=== PATIENT | female | born 1940 | race Caucasian/White ===

== ENCOUNTER 2017-01-31 10:14 | Emergency (ER) | payer MEDICARE ==
[2017-01-31 11:08] VITALS: RESP 16
[2017-01-31] MEDS ORDERED: SODIUM CHLORIDE 0.9% 1,000 ML IV STA (11:43)
[2017-01-31] MEDS ORDERED: KETOROLAC 30 MG/ML 1 ML VIAL IVP STA (11:46)
--- NOTE | 2017-01-31 11:49 | ED ---
Abdominal Pain HPI - General Chief Complaint: Abdominal Pain Stated Complaint: back pain, Kidney pain Time Seen by Provider: 01/31/17 11:20 Source: patient, RN notes reviewed Mode of arrival: ambulatory Limitations: no limitations - History of Present Illness Initial Comments: This is a 76-year-old female history of kidney stones many years ago around 1979 who states she had the onset at 9 AM this morning of right CVA pain was almost 10/10 in severity. She states is 5/10 now she cannot describe the pain specifically but initially states was very severe she's had some hot and cold flashes some nausea with it. She does state it feels very similar to her kidney stone that she recalls from any years ago. She denies any cough or phlegm production any constipation diarrhea or dysuria. She denies any hematuria at this time. She currently is not nauseated. She has a history of a cholecystectomy hysterectomy and shoulder surgeries. No known heart disease. No known lung disease MD Complaint: flank pain - Related Data Home Medications Medication Instructions Recorded Confirmed Bimatoprost [Lumigan .01% Ophth 1 drop LEFT EYE HS 01/31/17 01/31/17 Soln] Brimonidine Tartrate/Timolol 1 drop LEFT EYE BID 01/31/17 01/31/17 [Combigan 0.2%-0.5% Eye Drops] Cholecalciferol [Vitamin D3] 5,000 unit PO DAILY 01/31/17 01/31/17 Folic Acid 0.8 mg PO DAILY 01/31/17 01/31/17 Levothyroxine Sodium [Synthroid] 100 mcg PO DAILY 01/31/17 01/31/17 Lisinopril [Zestril] 20 mg PO DAILY 01/31/17 01/31/17 Multivitamins, Thera [Multivitamin 1 tab PO DAILY 01/31/17 01/31/17 (formulary)] [place]-3/Dha/Epa/Fish Oil [Fish Oil 1 cap PO DAILY 01/31/17 01/31/17 500 mg Softgel] Ubidecarenone [Co Q-10] 30 mg PO DAILY 01/31/17 01/31/17 Previous Rx's Medication Instructions Recorded Ketorolac [Toradol] 10 mg PO Q6HR #20 tab 01/31/17 Tamsulosin HCl [Flomax] 0.4 mg PO DAILY #7 cap.er.24h 01/31/17 Allergies Allergy/AdvReac Type Severity Reaction Status Date / Time acetaminophen Allergy "SHAKING" Verified 01/31/17 12:20 [From Excedrin Back and Body] adhesive tape Allergy Rash/Hives Verified 01/31/17 12:20 aspirin Allergy "SHAKING" Verified 01/31/17 12:20 [From Excedrin Back and Body] calcium carbonate Allergy "SHAKING" Verified 01/31/17 12:20 [From Excedrin Back and Body] Sulfa (Sulfonamide Allergy Unknown Verified 01/31/17 12:20 Antibiotics) Review of Systems ROS Statement: Those systems with pertinent positive or pertinent negative responses have been documented in the HPI. ROS Other: All systems not noted in ROS Statement are negative. Past Medical History Past Medical History: Hypertension, Thyroid Disorder Additional Past Medical History / Comment(s): KIDNEY STONE History of Any Multi-Drug Resistant Organisms: None Reported Past Surgical History: Cholecystectomy, Hysterectomy, Tonsillectomy Additional Past Surgical History / Comment(s): PLASTIC SURGERY SHOULDER, TUMORS IN FEET, BARTHILON CYST Past Psychological History: No Psychological Hx Reported Smoking Status: Never smoker Past Alcohol Use History: Occasional Past Drug Use History: None Reported General Exam - General Exam Comments Initial Comments: This is a well-developed well-nourished awake alert oriented 3 female Limitations: no limitations General appearance: alert, in no apparent distress Head exam: Present: atraumatic, normocephalic, normal inspection Eye exam: Present: normal appearance, PERRL, EOMI. Absent: scleral icterus, conjunctival injection, periorbital swelling ENT exam: Present: normal exam, mucous membranes moist Neck exam: Present: normal inspection. Absent: tenderness, meningismus, lymphadenopathy Respiratory exam: Present: normal lung sounds bilaterally. Absent: respiratory distress, wheezes, rales, rhonchi, stridor Cardiovascular Exam: Present: normal rhythm, bradycardia, normal heart sounds. Absent: systolic murmur, diastolic murmur, rubs, gallop, clicks GI/Abdominal exam: Present: soft, tenderness, normal bowel sounds. Absent: distended, guarding, rebound, rigid Rectal exam: Present: deferred (Mild right flank tenderness palpation no guarding or rebound masses or bruits) Extremities exam: Present: normal inspection, full ROM, normal capillary refill. Absent: tenderness, pedal edema, joint swelling, calf tenderness Back exam: Present: normal inspection. Absent: CVA tenderness (R), CVA tenderness (L), paraspinal tenderness, vertebral tenderness Neurological exam: Present: alert, oriented X3, CN II-XII intact Psychiatric exam: Present: normal affect, normal mood Skin exam: Present: warm, dry, intact, normal color. Absent: rash Course Vital Signs 01/31/17 01/31/17 11:04 15:17 Temperature 97.6 F 98.2 F Pulse Rate 55 L 82 Respiratory 16 16 Rate Blood Pressure 127/60 146/68 O2 Sat by Pulse 97 96 Oximetry Medical Decision Making - Medical Decision Making Patient continues to be pain-free I did discuss the findings with her. Reexamination reveals no tenderness or pain I did evaluate patient's lower extremities again no evidence of any calf pain or swelling. Patient will be discharged on appropriate medication - Lab Data Result diagrams: 01/31/17 12:10 01/31/17 12:10 Lab Results 01/31/17 01/31/17 01/31/17 Range/Units 12:10 12:10 12:10 WBC (3.8-10.6) k/uL RBC (3.80-5.40) m/uL Hgb (11.4-16.0) gm/dL Hct (34.0-46.0) % MCV (80.0-100.0) fL MCH (25.0-35.0) pg MCHC (31.0-37.0) g/dL RDW (11.5-15.5) % Plt Count (150-450) k/uL Neutrophils % % Lymphocytes % % Monocytes % % Eosinophils % % Basophils % % Neutrophils # (1.3-7.7) k/uL Lymphocytes # (1.0-4.8) k/uL Monocytes # (0-1.0) k/uL Eosinophils # (0-0.7) k/uL Basophils # (0-0.2) k/uL D-Dimer 2.04 H (<0.60) mg/L FEU Sodium 142 (137-145) mmol/L Potassium 4.4 (3.5-5.1) mmol/L Chloride 106 (98-107) mmol/L Carbon Dioxide 26 (22-30) mmol/L Anion Gap 10 mmol/L BUN 19 H (7-17) mg/dL Creatinine 0.75 (0.52-1.04) mg/dL Est GFR (MDRD) Af Amer >60 (>60 ml/min/1.73 sqM) Est GFR (MDRD) Non-Af >60 (>60 ml/min/1.73 sqM) Glucose 114 H (74-99) mg/dL Calcium 10.0 (8.4-10.2) mg/dL Magnesium 2.1 (1.6-2.3) mg/dL Total Bilirubin 0.7 (0.2-1.3) mg/dL AST 25 (14-36) U/L ALT 32 (9-52) U/L Alkaline Phosphatase 91 (38-126) U/L Total Creatine Kinase 68 (30-135) U/L CK-MB (CK-2) 1.0 (0.0-2.4) ng/mL CK-MB (CK-2) Rel Index 1.5 Troponin I <0.012 (0.000-0.034) ng/mL Total Protein 7.8 (6.3-8.2) g/dL Albumin 4.4 (3.5-5.0) g/dL Amylase 53 (30-110) U/L Lipase 183 (23-300) U/L Urine Color Urine Appearance (Clear) Urine pH (5.0-8.0) Ur Specific [place] (1.001-1.035) Urine Protein (Negative) Urine Glucose (UA) (Negative) Urine Ketones (Negative) Urine Blood (Negative) Urine Nitrite (Negative) Urine Bilirubin (Negative) Urine Urobilinogen (<2.0) mg/dL Ur Leukocyte Esterase (Negative) Urine RBC (0-5) /hpf Urine WBC (0-5) /hpf Ur Squamous Epith Cells (0-4) /hpf Urine Bacteria (None) /hpf Urine Mucus (None) /hpf 01/31/17 01/31/17 Range/Units 12:10 12:10 WBC 9.9 (3.8-10.6) k/uL RBC 4.72 (3.80-5.40) m/uL Hgb 14.4 (11.4-16.0) gm/dL Hct 43.0 (34.0-46.0) % MCV 91.2 (80.0-100.0) fL MCH 30.4 (25.0-35.0) pg MCHC 33.4 (31.0-37.0) g/dL RDW 12.7 (11.5-15.5) % Plt Count 243 (150-450) k/uL Neutrophils % 81 % Lymphocytes % 11 % Monocytes % 5 % Eosinophils % 1 % Basophils % 0 % Neutrophils # 8.0 H (1.3-7.7) k/uL Lymphocytes # 1.1 (1.0-4.8) k/uL Monocytes # 0.5 (0-1.0) k/uL Eosinophils # 0.1 (0-0.7) k/uL Basophils # 0.0 (0-0.2) k/uL D-Dimer (<0.60) mg/L FEU Sodium (137-145) mmol/L Potassium (3.5-5.1) mmol/L Chloride (98-107) mmol/L Carbon Dioxide (22-30) mmol/L Anion Gap mmol/L BUN (7-17) mg/dL Creatinine (0.52-1.04) mg/dL Est GFR (MDRD) Af Amer (>60 ml/min/1.73 sqM) Est GFR (MDRD) Non-Af (>60 ml/min/1.73 sqM) Glucose (74-99) mg/dL Calcium (8.4-10.2) mg/dL Magnesium (1.6-2.3) mg/dL Total Bilirubin (0.2-1.3) mg/dL AST (14-36) U/L ALT (9-52) U/L Alkaline Phosphatase (38-126) U/L Total Creatine Kinase (30-135) U/L CK-MB (CK-2) (0.0-2.4) ng/mL CK-MB (CK-2) Rel Index Troponin I (0.000-0.034) ng/mL Total Protein (6.3-8.2) g/dL Albumin (3.5-5.0) g/dL Amylase (30-110) U/L Lipase (23-300) U/L Urine Color Yellow Urine Appearance Cloudy H (Clear) Urine pH 5.5 (5.0-8.0) Ur Specific [place] 1.013 (1.001-1.035) Urine Protein Trace H (Negative) Urine Glucose (UA) Negative (Negative) Urine Ketones Trace H (Negative) Urine Blood Large H (Negative) Urine Nitrite Negative (Negative) Urine Bilirubin Negative (Negative) Urine Urobilinogen <2.0 (<2.0) mg/dL Ur Leukocyte Esterase Negative (Negative) Urine RBC >182 H (0-5) /hpf Urine WBC 8 H (0-5) /hpf Ur Squamous Epith Cells <1 (0-4) /hpf Urine Bacteria Rare H (None) /hpf Urine Mucus Rare H (None) /hpf - EKG Data -: EKG Interpreted by Me EKG shows normal: sinus rhythm (Normal sinus rhythm rate 65. Interval 178 QRS duration 80 daily since QTC of 432/449 st-t wave changes.) - Radiology Data Radiology results: report reviewed (I did review the imaging and reports no evidence of acute findings other than there is a 0.2 cm mid to distal ureteral stone on the right. There is moderate hydronephrosis and hydroureter. There is evidence of diverticulosis no evidence of any suspicious aneurysm or dissection.), image reviewed Disposition Clinical Impression: Kidney stone on right side, Renal colic on right side, Diverticulosis Disposition: HOME SELF-CARE Condition: Good Instructions: Kidney Stones (ED), Renal Colic (ED), Flank Pain (ED), Diverticulosis (ED) Prescriptions: Ketorolac [Toradol] 10 mg PO Q6HR #20 tab Tamsulosin HCl [Flomax] 0.4 mg PO DAILY #7 cap.er.24h
[2017-01-31 12:27] LABS: Basophils % (A) 0 %; CHCM 34.1; Eosinophils # (A) 0.1 k/uL (0-0.7); Eosinophils % (A) 1 %; HDW 2.38; HGB 14.4 gm/dL (11.4-16.0); Luc # (Auto) 0.14; Luc % (Auto) 2; Lymphocytes # (A) 1.1 k/uL (1.0-4.8); Lymphocytes % (A) 11 %; MCH 30.4 pg (25.0-35.0); MCHC 33.4 g/dL (31.0-37.0); MCV 91.2 fL (80.0-100.0); Mean Platelet Volume 6.7; Monocytes # (A) 0.5 k/uL (0-1.0); Monocytes % (A) 5 %; Neutrophils % (A) 81 %; RBC 4.72 m/uL (3.80-5.40); RDW 12.7 % (11.5-15.5); WBC 9.9 k/uL (3.8-10.6); WBC (Perox) 9.57
[2017-01-31 12:37] LABS: Appearance,Urine Cloudy (Clear); Bacteria,Urine Rare /hpf; Bilirubin,Urine Negative (Negative); Glucose,Urine (UA) Negative (Negative); Ketones,Urine Trace (Negative); Leukocyte Esterase,Urine Negative (Negative); Mucus,Urine Rare /hpf; Nitrite,Urine Negative (Negative); PH, Urine 5.5 (5.0-8.0); Particle Count 2539; Protein,Urine Trace (Negative); RBC,Urine >182 /hpf (0-5); Specific Gravity,Urine 1.013 (1.001-1.035); Squamous Epithelial Cell,Urine <1 /hpf (0-4); UA Billing (MACRO vs. MICRO) MICRO; Urobilinogen,Urine <2.0 mg/dL (<2.0); WBC,Urine 8 /hpf (0-5)
[2017-01-31 12:40] LABS: ALT 32 U/L (9-52); AST 25 U/L (14-36); Alkaline Phosphatase 91 U/L (38-126); Amylase 53 U/L (30-110); Anion Gap 10 mmol/L; Blood Urea Nitrogen 19 mg/dL (7-17); Carbon Dioxide 26 mmol/L (22-30); Chloride 106 mmol/L (98-107); Glucose 114 mg/dL (74-99); Non-African American GFR(MDRD) >60 (>60 ml/min/1.73 sqM); Potassium 4.4 mmol/L (3.5-5.1); Sodium 142 mmol/L (137-145); Total Bilirubin 0.7 mg/dL (0.2-1.3); Total Protein 7.8 g/dL (6.3-8.2)
--- NOTE | 2017-01-31 12:42 | XR ---
EXAMINATION TYPE: XR chest 2V DATE OF EXAM: 01/31/2017 12:29 PM COMPARISON: NONE INDICATION: Abdomen pain TECHNIQUE: 2 view chest FINDINGS: The heart size is normal. The pulmonary vasculature is normal. The lungs are clear. IMPRESSION: 1. No acute pulmonary process.
--- NOTE | 2017-01-31 12:43 | XR ---
EXAMINATION TYPE: XR KUB DATE OF EXAM: 01/31/2017 12:29 PM COMPARISON: NONE INDICATION: Abdomen pain TECHNIQUE: Single view abdomen upright FINDINGS: There is a normal bowel gas pattern. Psoas margins are normal. No organomegaly is present. Cholecystectomy clips are present. IMPRESSION: 1. Unremarkable Abdomen
[2017-01-31 12:53] LABS: Creatine Kinase 68 U/L (30-135)
[2017-01-31 12:56] LABS: Magnesium 2.1 mg/dL (1.6-2.3)
[2017-01-31 13:05] LABS: Troponin I <0.012 ng/mL (0.000-0.034)
[2017-01-31] MEDS ORDERED: RX INFO: IV CONTRAST WAS GIVEN 1 EACH MISC MISCELLANE PRN ×2 (14:12→14:14)
--- NOTE | 2017-01-31 15:34 | CT ---
EXAMINATION TYPE: CT angio thoracic/abd aorta DATE OF EXAM: 01/31/2017 2:53 PM COMPARISON: NONE HISTORY: Flank pain with elevated D-Dimer CT DLP: 1090.5 mGycm Automated exposure control for dose reduction was used. TECHNIQUE: Performed with IV Contrast, patient injected with 100 mL of Omnipaque 350. Images were obtained from the thorax and abdomen.. Study is performed without and with intravenous co ntrast. FINDINGS: Ascending thoracic aorta at the level of the main pulmonary artery is 3.2 cm. Main pulmonary artery t he bifurcation is 2.4 cm. Hiatal hernia is present. Vascular calcification is within the aorta. The aorta tapers throughout its thoracic course. Aorta ta pers through the abdomen to the bifurcation. No aneurysmal dilatation is evident. Internal and dinner cook al iliac arteries are patent. Common femoral arteries are patent. No dissection is evident. CT CHEST: Portion of the thyroid visualized is unremarkable. No enlarged mediastinal or hilar lymph n odes are evident. Coronary artery calcification may be present. Epicardial fat pad may be present on the right. CT ABDOMEN: A large cyst at the medial left lobe liver. Pancreas appears normal. Adrenal glands are n ormal. There is a moderate right hydronephrosis and hydroureter. Hydroureter extends to the pelvic in let. A ureteral stone measuring 0.2 cm is not excluded. Series 6 image 94. Distal ureter appears unre markable. Multiple phleboliths within the pelvis. There are also likely some vascular calcification w ithin the ovarian vein region on the right. Left kidney has mild peripelvic cysts. No hydroureter or hydronephrosis is identified. What may be the appendix appears unremarkable. This could be terminal i leum. No dilated loops of bowel are evident. No suspicious right lower quadrant inflammatory changes are evident. CT PELVIS: Multiple diverticuli within the sigmoid colon. No free fluid is within the pelvis. Bladder is unremarkable. IMPRESSION: 1. NO SUSPICIOUS ANEURYSM OR DISSECTION. 2. SUSPICION OF A 0.2 CM MID TO DISTAL URETERAL STONE ON THE RIGHT WITH MODERATE RIGHT HYDRONEPHROSIS AND HYDROURETER. 3. DIVERTICULOSIS.
[2017-01-31 16:21] VITALS: BP 142/68; PULSE 71; TEMP 97.8
== END 2017-01-31 16:20 | disposition home or self-care (01) ==
LOC: EC 10:14
DX: N20.0 Calculus of kidney (principal); K57.90 Diverticulosis of intestine, part unspecified, without perforation or abscess without bleeding; I10 Essential (primary) hypertension; E07.9 Disorder of thyroid, unspecified; Z79.899 Other long term (current) drug therapy; Z88.6 Allergy status to analgesic agent; Z88.2 Allergy status to sulfonamides; Z91.048 Other nonmedicinal substance allergy status; Z88.8 Allergy status to other drugs, medicaments and biological substances; Z90.49 Acquired absence of other specified parts of digestive tract
CPT/HCPCS: 36415; 93005; 85379; 80053; 82150; 82550; 82553; 83690; 83735; 84484; 85025; 81001; 71020; 74000; 75635; 71275; 99284; 96374; Q9967; J1885

== ENCOUNTER 2017-02-11 06:31 | Emergency (ER) | payer MEDICARE ==
[2017-02-11] MEDS ORDERED: SODIUM CHLORIDE 0.9% 1,000 ML IV STA ×2 (07:42)
[2017-02-11] MEDS ORDERED: MORPHINE SULFATE 4 MG/ML SYRINGE IVP STA (07:42)
[2017-02-11 07:49] LABS: Basophils # (A) 0.1 k/uL (0-0.2); Basophils % (A) 1 %; CH 30.9; CHCM 33.7; Eosinophils # (A) 0.2 k/uL (0-0.7); Eosinophils % (A) 2 %; HCT 44.8 % (34.0-46.0); HDW 2.42; HGB 14.6 gm/dL (11.4-16.0); Luc # (Auto) 0.14; Luc % (Auto) 2; Lymphocytes # (A) 1.6 k/uL (1.0-4.8); Lymphocytes % (A) 21 %; MCH 30.1 pg (25.0-35.0); MCHC 32.6 g/dL (31.0-37.0); MCV 92.2 fL (80.0-100.0); Mean Platelet Volume 6.9; Monocytes # (A) 0.5 k/uL (0-1.0); Monocytes % (A) 7 %; Neutrophils % (A) 68 %; RBC 4.86 m/uL (3.80-5.40); RDW 12.8 % (11.5-15.5); WBC 7.5 k/uL (3.8-10.6); WBC (Perox) 6.84
[2017-02-11 07:50] LABS: Appearance,Urine Clear (Clear); Bilirubin,Urine Negative (Negative); Glucose,Urine (UA) Negative (Negative); Ketones,Urine Negative (Negative); Leukocyte Esterase,Urine Negative (Negative); Nitrite,Urine Negative (Negative); PH, Urine 5.5 (5.0-8.0); Protein,Urine Negative (Negative); Specific Gravity,Urine 1.002 (1.001-1.035); UA Billing (MACRO vs. MICRO) CHEM; Urobilinogen,Urine <2.0 mg/dL (<2.0)
[2017-02-11 08:00] LABS: ALT 24 U/L (9-52); AST 26 U/L (14-36); Alkaline Phosphatase 86 U/L (38-126); Amylase 71 U/L (30-110); Anion Gap 13 mmol/L; Blood Urea Nitrogen 17 mg/dL (7-17); Calcium 9.7 mg/dL (8.4-10.2); Carbon Dioxide 23 mmol/L (22-30); Chloride 108 mmol/L (98-107); Glucose 107 mg/dL (74-99); Non-African American GFR(MDRD) >60 (>60 ml/min/1.73 sqM); Potassium 4.6 mmol/L (3.5-5.1); Sodium 144 mmol/L (137-145); Total Bilirubin 0.6 mg/dL (0.2-1.3); Total Protein 8.1 g/dL (6.3-8.2)
[2017-02-11 08:38] LABS: Magnesium 2.1 mg/dL (1.6-2.3); Phosphorous 4.6 mg/dL (2.5-4.5)
--- NOTE | 2017-02-11 08:46 | ED ---
General Adult HPI - General Chief complaint: Abdominal Pain Stated complaint: Kidney pain Time Seen by Provider: 02/11/17 07:36 Source: patient, RN notes reviewed, old records reviewed Mode of arrival: ambulatory Limitations: no limitations - History of Present Illness Initial comments: This is a 76-year-old female ER for reevaluation flank pain, right flank pain severe. Patient had recent diagnosis of new onset kidney stones. Patient had CT at the time. The symptoms were about a week ago, she states pain did resolve until she did not notice the passing of her kidney stone. She denies any dysuria, no fevers. No abdominal pain no nausea vomiting or diarrhea - Related Data Home Medications Medication Instructions Recorded Confirmed Bimatoprost [Lumigan .01% Ophth 1 drop LEFT EYE HS 01/31/17 02/11/17 Soln] Brimonidine Tartrate/Timolol 1 drop LEFT EYE BID 01/31/17 02/11/17 [Combigan 0.2%-0.5% Eye Drops] Cholecalciferol [Vitamin D3] 5,000 unit PO DAILY 01/31/17 02/11/17 Folic Acid 0.8 mg PO DAILY 01/31/17 02/11/17 Levothyroxine Sodium [Synthroid] 100 mcg PO DAILY 01/31/17 02/11/17 Lisinopril [Zestril] 20 mg PO DAILY 01/31/17 02/11/17 Multivitamins, Thera [Multivitamin 1 tab PO DAILY 01/31/17 02/11/17 (formulary)] [place]-3/Dha/Epa/Fish Oil [Fish Oil 1 cap PO DAILY 01/31/17 02/11/17 500 mg Softgel] Ubidecarenone [Co Q-10] 30 mg PO DAILY 01/31/17 02/11/17 Allergies Allergy/AdvReac Type Severity Reaction Status Date / Time adhesive tape Allergy Rash/Hives Verified 02/11/17 08:01 Sulfa (Sulfonamide Allergy Unknown Verified 02/11/17 08:01 Antibiotics) acetaminophen AdvReac "SHAKING" Verified 02/11/17 08:01 [From Excedrin Back and Body] aspirin AdvReac "SHAKING" Verified 02/11/17 08:01 [From Excedrin Back and Body] calcium carbonate AdvReac "SHAKING" Verified 02/11/17 08:01 [From Excedrin Back and Body] Review of Systems ROS Statement: Those systems with pertinent positive or pertinent negative responses have been documented in the HPI. ROS Other: All systems not noted in ROS Statement are negative. Past Medical History Past Medical History: Hypertension, Thyroid Disorder Additional Past Medical History / Comment(s): KIDNEY STONE History of Any Multi-Drug Resistant Organisms: None Reported Past Surgical History: Cholecystectomy, Hysterectomy, Tonsillectomy Additional Past Surgical History / Comment(s): PLASTIC SURGERY SHOULDER, TUMORS IN FEET, BARTHILON CYST Past Psychological History: No Psychological Hx Reported Smoking Status: Never smoker Past Alcohol Use History: Occasional Past Drug Use History: None Reported General Exam Limitations: no limitations General appearance: alert, in no apparent distress Head exam: Present: atraumatic, normocephalic, normal inspection Eye exam: Present: normal appearance, PERRL, EOMI. Absent: scleral icterus, conjunctival injection, periorbital swelling ENT exam: Present: normal exam, mucous membranes moist Neck exam: Present: normal inspection. Absent: tenderness, meningismus, lymphadenopathy Respiratory exam: Present: normal lung sounds bilaterally. Absent: respiratory distress, wheezes, rales, rhonchi, stridor Cardiovascular Exam: Present: regular rate, normal rhythm, normal heart sounds. Absent: systolic murmur, diastolic murmur, rubs, gallop, clicks GI/Abdominal exam: Present: soft, normal bowel sounds. Absent: distended, tenderness, guarding, rebound, rigid Extremities exam: Present: normal inspection, full ROM, normal capillary refill. Absent: tenderness, pedal edema, joint swelling, calf tenderness Back exam: Present: normal inspection Neurological exam: Present: alert, oriented X3, CN II-XII intact Psychiatric exam: Present: normal affect, normal mood Skin exam: Present: warm, dry, intact, normal color. Absent: rash Course Vital Signs 02/11/17 02/11/17 06:37 08:43 Temperature 98.1 F 97.7 F Pulse Rate 69 73 Respiratory 18 15 Rate Blood Pressure 156/76 180/81 O2 Sat by Pulse 97 98 Oximetry - Reevaluation(s) Reevaluation #1: 02/11/17 08:45 Looked looking through patient's medical records there is positive CAT scan, CAT scan shows no evidence of aneurysm Reevaluation #2: 02/11/17 08:45 At this time patient's pain is controlled Medical Decision Making - Medical Decision Making 36 female with known history of kidney stones, coming in with no complication, patient will pain control and encouraged increase IV hydration and oral hydration at home - Lab Data Result diagrams: 02/11/17 07:00 02/11/17 07:00 Lab Results 02/11/17 02/11/17 02/11/17 Range/Units 07:00 07:00 07:00 WBC 7.5 (3.8-10.6) k/uL RBC 4.86 (3.80-5.40) m/uL Hgb 14.6 (11.4-16.0) gm/dL Hct 44.8 (34.0-46.0) % MCV 92.2 (80.0-100.0) fL MCH 30.1 (25.0-35.0) pg MCHC 32.6 (31.0-37.0) g/dL RDW 12.8 (11.5-15.5) % Plt Count 309 (150-450) k/uL Neutrophils % 68 % Lymphocytes % 21 % Monocytes % 7 % Eosinophils % 2 % Basophils % 1 % Neutrophils # 5.0 (1.3-7.7) k/uL Lymphocytes # 1.6 (1.0-4.8) k/uL Monocytes # 0.5 (0-1.0) k/uL Eosinophils # 0.2 (0-0.7) k/uL Basophils # 0.1 (0-0.2) k/uL Sodium 144 (137-145) mmol/L Potassium 4.6 (3.5-5.1) mmol/L Chloride 108 H (98-107) mmol/L Carbon Dioxide 23 (22-30) mmol/L Anion Gap 13 mmol/L BUN 17 (7-17) mg/dL Creatinine 0.87 (0.52-1.04) mg/dL Est GFR (MDRD) Af Amer >60 (>60 ml/min/1.73 sqM) Est GFR (MDRD) Non-Af >60 (>60 ml/min/1.73 sqM) Glucose 107 H (74-99) mg/dL Calcium 9.7 (8.4-10.2) mg/dL Phosphorus 4.6 H (2.5-4.5) mg/dL Magnesium 2.1 (1.6-2.3) mg/dL Total Bilirubin 0.6 (0.2-1.3) mg/dL AST 26 (14-36) U/L ALT 24 (9-52) U/L Alkaline Phosphatase 86 (38-126) U/L Total Protein 8.1 (6.3-8.2) g/dL Albumin 4.6 (3.5-5.0) g/dL Amylase 71 (30-110) U/L Lipase 200 (23-300) U/L Urine Color Urine Appearance (Clear) Urine pH (5.0-8.0) Ur Specific [place] (1.001-1.035) Urine Protein (Negative) Urine Glucose (UA) (Negative) Urine Ketones (Negative) Urine Blood (Negative) Urine Nitrite (Negative) Urine Bilirubin (Negative) Urine Urobilinogen (<2.0) mg/dL Ur Leukocyte Esterase (Negative) 02/11/17 Range/Units 07:30 WBC (3.8-10.6) k/uL RBC (3.80-5.40) m/uL Hgb (11.4-16.0) gm/dL Hct (34.0-46.0) % MCV (80.0-100.0) fL MCH (25.0-35.0) pg MCHC (31.0-37.0) g/dL RDW (11.5-15.5) % Plt Count (150-450) k/uL Neutrophils % % Lymphocytes % % Monocytes % % Eosinophils % % Basophils % % Neutrophils # (1.3-7.7) k/uL Lymphocytes # (1.0-4.8) k/uL Monocytes # (0-1.0) k/uL Eosinophils # (0-0.7) k/uL Basophils # (0-0.2) k/uL Sodium (137-145) mmol/L Potassium (3.5-5.1) mmol/L Chloride (98-107) mmol/L Carbon Dioxide (22-30) mmol/L Anion Gap mmol/L BUN (7-17) mg/dL Creatinine (0.52-1.04) mg/dL Est GFR (MDRD) Af Amer (>60 ml/min/1.73 sqM) Est GFR (MDRD) Non-Af (>60 ml/min/1.73 sqM) Glucose (74-99) mg/dL Calcium (8.4-10.2) mg/dL Phosphorus (2.5-4.5) mg/dL Magnesium (1.6-2.3) mg/dL Total Bilirubin (0.2-1.3) mg/dL AST (14-36) U/L ALT (9-52) U/L Alkaline Phosphatase (38-126) U/L Total Protein (6.3-8.2) g/dL Albumin (3.5-5.0) g/dL Amylase (30-110) U/L Lipase (23-300) U/L Urine Color Colorless Urine Appearance Clear (Clear) Urine pH 5.5 (5.0-8.0) Ur Specific [place] 1.002 (1.001-1.035) Urine Protein Negative (Negative) Urine Glucose (UA) Negative (Negative) Urine Ketones Negative (Negative) Urine Blood Negative (Negative) Urine Nitrite Negative (Negative) Urine Bilirubin Negative (Negative) Urine Urobilinogen <2.0 (<2.0) mg/dL Ur Leukocyte Esterase Negative (Negative) - Radiology Data Radiology results: report reviewed (Ultrasound kidneys and renal are negative), image reviewed Disposition Clinical Impression: Kidney stone on right side, Renal colic on right side Disposition: HOME SELF-CARE Condition: Good Instructions: Kidney Stones (ED), Renal Colic (ED) Referrals: None,Stated [Primary Care Provider] - 1-2 days
--- NOTE | 2017-02-11 09:45 | US ---
EXAMINATION TYPE: US renals and bladder DATE OF EXAM: 02/11/2017 9:16 AM COMPARISON: None CLINICAL HISTORY: Pain. Hx of right renal stones x 1.5 weeks ago. Patient doesn't know if she passed it. Right side pain. EXAM MEASUREMENTS: Right Kidney: 10.3 x 4.9 x 5.4 cm Left Kidney: 11.3 x 5.2 x 5.5 cm No renal or ureteral stones are identified. No masses or cysts are evident. Right Kidney: Moderate to severe hydronephrosis seen. Bowel gas obscuring ureter. Left Kidney: prominent pyramids visualized Bladder: distended Bilateral Jets not seen IMPRESSION: 1. Moderate to severe right hydronephrosis.
[2017-02-11 10:14] VITALS: PULSE 70; RESP 16
[2017-02-11 11:24] VITALS: BP 141/100; TEMP 98.1
== END 2017-02-11 11:22 | disposition home or self-care (01) ==
LOC: EC 06:31
DX: N20.0 Calculus of kidney (principal); I10 Essential (primary) hypertension; E07.9 Disorder of thyroid, unspecified; Z90.49 Acquired absence of other specified parts of digestive tract; Z88.2 Allergy status to sulfonamides; Z88.6 Allergy status to analgesic agent; Z88.8 Allergy status to other drugs, medicaments and biological substances; Z91.048 Other nonmedicinal substance allergy status; Z79.899 Other long term (current) drug therapy
CPT/HCPCS: 99284 ×2; 96374 ×2; 96361 ×4; 36415; 80053; 82150; 83690; 83735; 84100; 85025; 81003; 87086; 76770; J2270